=== PATIENT | female | born 1930 | race Asian ===

== ENCOUNTER 2018-01-20 15:57 | Emergency (ER) | payer OTHER ==
[~2018-01-20] VITALS: Ht 144.8 cm; Wt 38.3 kg
[2018-01-20 16:12] VITALS: BP 156/83
--- NOTE | 2018-01-20 16:16 | NUR ---
WHEEL CHAIR ASSISTED BACK TO THE LOBBY WITH DAUGHTER
--- NOTE | 2018-01-20 16:30 | NUR ---
87YO F BIB DAUGHTER WITH C/O LT ELBOW PAIN/SWELLING, LT SHOULDER PAIN S/P FALL ON A WOODEN FLOOR; CAN NOT RAISE HER LT ARM BEYOND HER SHOULDER, PT DENIES ANY LOC, DIZZINES OR LIGHTHEADEDNESS. NO BRUSING OR REDNESS NOTED HX; DENIES RX; DENIES
--- NOTE | 2018-01-20 16:36 | NUR ---
RADIOLOGY AT BEDSIDE FOR XRAY
[2018-01-20 16:58] VITALS: BP 145/89
--- NOTE | 2018-01-20 16:58 | NUR ---
Patient discharged with v/s stable. Written and verbal after care instructions given and explained. Patient alert, oriented and verbalized understanding of instructions. Ambulatory with steady gait. All questions addressed prior to discharge. ID band removed. Patient advised to follow up with PMD. Rx of ZOFRAN, IMODIUM, MOTRIN, PRILOSEC given. Patient educated on indication of medication including possible reaction and side effects. Opportunity to ask questions provided and answered.
[2018-01-20] MEDS ORDERED: KETOROLAC 60 MG/2 ML VIAL IM ONE (17:05)
--- NOTE | 2018-01-20 18:07 | NUR ---
PT RESTING IN NO APPEARENT DISTRESS. WILL CONTINUE TO MONITOR
--- NOTE | 2018-01-20 18:37 | NUR ---
Patient discharged with v/s stable. Written and verbal after care instructions given and explained. Patient alert, oriented and verbalized understanding of instructions. Wheel Chair Assisted with to car. All questions addressed prior to discharge. ID band removed. Patient advised to follow up with PMD. Rx of MOTRIN given. Patient educated on indication of medication including possible reaction and side effects. Opportunity to ask questions provided and answered.
== END 2018-01-20 18:37 | disposition home or self-care (01) ==
LOC: MED 15:57
DX: S50.02XA Contusion of left elbow, initial encounter (principal); W18.30XA Fall on same level, unspecified, initial encounter; Y93.89 Activity, other specified; Y92.89 Other specified places as the place of occurrence of the external cause; Y99.8 Other external cause status
CPT/HCPCS: 73080; 96372; 99284; J1885; Q0092

== ENCOUNTER 2020-02-11 12:28 | Emergency (ER) | payer OTHER ==
[~2020-02-11] VITALS: Ht 157.5 cm; Wt 40.8 kg
[2020-02-11 12:37] VITALS: BP 149/106
--- NOTE | 2020-02-11 12:53 | NUR ---
89 y/o female pt bib daughter s/p fall. Pt c/o left arm and rib pain 8/10 constant radiates to right rib and arm constant. Denies LOC. PMH: Dementia, HTN, alzeihmers NKA
--- NOTE | 2020-02-11 13:22 | NUR ---
Dr. Mendoza at pt bedside.
[2020-02-11] MEDS ORDERED: fentaNYL citrate 0.05 MG/ML VIAL NS ONE (13:30)
--- NOTE | 2020-02-11 14:15 | NUR ---
Pt taken to CT via [place].
--- NOTE | 2020-02-11 14:23 | NUR ---
Patient returned from CT and placed in bed 7.
--- NOTE | 2020-02-11 15:52 | NUR ---
Pt resting, HOB elevated, VSS, will continue to monitor.
--- NOTE | 2020-02-11 16:51 | NUR ---
Pt resting in bed, equal rise and fall of the chest, VSS, will continue to monitor.
--- NOTE | 2020-02-11 17:19 | NUR ---
Dr. Mendoza at pt bedside for further evaluation.
--- NOTE | 2020-02-11 17:35 | NUR ---
[facility] [phone]
[2020-02-11] MEDS ORDERED: HYDROcodone/APAP 5/325 MG 1 TAB TAB PO ONE (17:40)
[2020-02-11] MEDS ORDERED: ONDANSETRON 4 MG ODT PO ONE (17:40)
[2020-02-11 18:52] VITALS: BP 126/76
--- NOTE | 2020-02-11 18:53 | NUR ---
Patient discharged with v/s stable. Written and verbal after care instructions given and explained. Patient alert, oriented and verbalized understanding of instructions. Wheel Chair Assisted with by caregiver. All questions addressed prior to discharge. ID band removed. Patient advised to follow up with PMD. Rx of lidoderm 5% transdermal patch 1 12 hrs on, 12hrs off, acetaminophen 500mg q6h PO PRN pain, and tynenol with codeine 3 po q6h PRN pain given. Patient educated on indication of medication including possible reaction and side effects. Opportunity to ask questions provided and answered.
== END 2020-02-11 18:53 | disposition home or self-care (01) ==
LOC: MED 12:28
DX: S22.39XA Fracture of one rib, unspecified side, initial encounter for closed fracture (principal); R07.9 Chest pain, unspecified; J93.9 Pneumothorax, unspecified; R91.1 Solitary pulmonary nodule; F03.90 Unspecified dementia, unspecified severity, without behavioral disturbance, psychotic disturbance, mood disturbance, and anxiety; I10 Essential (primary) hypertension; G30.9 Alzheimer's disease, unspecified; Z98.890 Other specified postprocedural states; X58.XXXA Exposure to other specified factors, initial encounter; Y93.89 Activity, other specified; Y92.89 Other specified places as the place of occurrence of the external cause; Y99.8 Other external cause status
CPT/HCPCS: 71045; 71250; 99284; J3010; Q0162

== ENCOUNTER 2020-09-18 19:15 | Emergency (ER) | payer OTHER ==
[~2020-09-18] VITALS: Ht 144.8 cm; Wt 38.1 kg
[2020-09-18 19:34] VITALS: BP 118/73
--- NOTE | 2020-09-18 19:34 | NUR ---
TO BED VIA WHEELCHAIR
[2020-09-18] MEDS ORDERED: DICYCLOMINE HCL LIQUID 20 MG, ALUMINUM HYD/MAG/SIMETHICONE 30 ML, LIDOCAINE VISCOUS 2% ... PO ONE ×3 (20:05)
[2020-09-18] MEDS ORDERED: ACETAMINOPHEN EXTRA STRENGTH 500 MG TAB PO ONE (20:05)
[2020-09-18] MEDS ORDERED: ALUMINUM HYD/MAG/SIMETHICONE 30 ML UDC ONE (20:11)
[2020-09-18] MEDS ORDERED: DICYCLOMINE HCL LIQUID 10 MG/5 ML UDC ONE (20:12)
--- NOTE | 2020-09-18 20:16 | NUR ---
X-Ray at bedside.
--- NOTE | 2020-09-18 21:10 | NUR ---
Patient laying in bed, w a blanket, bed locked in lowest position, x2 siderails up for patient safety. Breathing even and unlabored. NAD, will continue to monitor.
--- NOTE | 2020-09-18 21:19 | NUR ---
lABS DRAWN AND HANDED ALEKSANDER FROM LAB.
[2020-09-18 21:45] LABS: BASOPHILS % (AUTO) 0.2 % (0.0-2.0); EOSINOPHILS # (AUTO) 0.1 K/uL (0-0.4); EOSINOPHILS % (AUTO) 1.8 % (0.0-4.0); HEMATOCRIT 41.5 % (36-48); HEMOGLOBIN 13.8 g/dL (12.0-16.0); LYMPHOCYTES # (AUTO) 1.1 K/uL (2.5-16.5); LYMPHOCYTES % (AUTO) 13.4 % (20.5-51.1); MEAN CORPUSCULAR HEMOGLOBIN 33 pg (27-31); MEAN CORPUSCULAR HGB CONC 33 g/dL (33-37); MEAN CORPUSCULAR VOLUME 100.3 fL (80-94); MONOCYTES # (AUTO) 0.6 K/uL (0.8-1.0); MONOCYTES % (AUTO) 8.1 % (1.7-9.3); NEUTROPHILS % (AUTO) 76.5 % (42.2-75.2); PLATELET COUNT (AUTO) 277 K/uL (140-450); RED BLOOD CELL COUNT(AUTO) 4.14 MIL/uL (4.20-5.40); RED CELL DISTRIBUTION WIDTH 13.2 % (11.6-13.7); WHITE BLOOD COUNT (AUTO) 7.9 K/uL (4.8-10.8)
[2020-09-18 21:51] LABS: ALBUMIN 3.8 g/dL (3.4-5.0); ASPARTATE AMINOTRANSFERASE 18 U/L (15-37); CARBON DIOXIDE 31.3 mmol/L (21-32); CHLORIDE 107 mmol/L (98-107); GLUCOSE 123 mg/dL (74-106); LIPASE 263 U/L (73-393); POTASSIUM 3.3 mmol/L (3.5-5.1); SODIUM SERUM 147 mmol/L (136-145); TOTAL BILIRUBIN 0.6 mg/dL (0.0-1.0); UREA NITROGEN, BLOOD 18 mg/dL (7-18)
[2020-09-18] MEDS ORDERED: MAG355OR2 PO (22:10)
[2020-09-18] MEDS ORDERED: ACET-10509 PO (22:10)
[2020-09-18 22:38] VITALS: BP 121/65
--- NOTE | 2020-09-18 22:38 | NUR ---
Patient discharged with v/s stable. Written and verbal after care instructions given and explained. Patient alert, oriented and verbalized understanding of instructions. Wheel Chair Assisted with to car. All questions addressed prior to discharge. ID band removed. Patient advised to follow up with PMD. Rx of Acetaminophen, Maalox given. Patient educated on indication of medication including possible reaction and side effects. Opportunity to ask questions provided and answered.
== END 2020-09-18 22:38 | disposition home or self-care (01) ==
LOC: MED 19:15
DX: M54.6 Pain in thoracic spine (principal); R00.2 Palpitations; R07.9 Chest pain, unspecified; F03.90 Unspecified dementia, unspecified severity, without behavioral disturbance, psychotic disturbance, mood disturbance, and anxiety; I10 Essential (primary) hypertension; Z79.899 Other long term (current) drug therapy
CPT/HCPCS: 36415; 71045; 80053; 83690; 84484; 85025; 93005; 99285